=== PATIENT | female | born 2000 | race Caucasian/White ===

== ENCOUNTER → 2023-04-19 06:21 | Day surgery (SDC) | payer BC, SELFPAY | LOC: GI 06:21 | PROVIDERS: ATTENDING PHYSICIAN Internal Medicine | DX: Z09 Encounter for follow-up examination after completed treatment for conditions other than malignant neoplasm (principal); K51.00 Ulcerative (chronic) pancolitis without complications | CPT/HCPCS: 45380; 88305 ==

== ENCOUNTER → 2024-04-14 09:11 | Emergency (ER) | payer BC, MEDICARE, SELFPAY ==
[2024-04-14 09:20] VITALS: BP 114/77
--- NOTE | 2024-04-14 10:18 | ED.GENMED ---
History of Present Illness
General
Chief Complaint: Abdominal Symptoms
Source: patient and family (Mother)
Exam Limitations: none
Time Seen by Provider: 04/14/24 09:57
History of Present Illness
History of Present Illness:
23-year-old female, , 20 weeks presents with rectal bleeding. Known history of ulcerative colitis. Followed by our YOUTH CARE SPECIALIST/GI group. Has been on budesonide foam/steroid enema for 1 week. No improvement. Started oral budesonide
yesterday. Patient does not feel any worse today but with lack of improvement and significant concern for her baby she presents for evaluation. She is scheduled for a flex sig on . She denies fever chills nausea or vomiting. She has no
vaginal symptoms.
Past History
Past History
ED Past Medical History: Psychiatric and Other (Ulcerative colitis)
ED Past Surgical History: None
Social History
Tobacco: Non-smoker
Alcohol: None
Drug: None
Personal: Partner
Living: with family
Employment: Student
Review of Systems
Review of Systems
All Other Systems: Not applicable
Constitutional: Denies fever or chills
Phy Exam
Physical Exam
Physical Exam:
GENERAL: Alert and oriented in no apparent distress
EYE: Orbits normal.
NECK: Supple
CARDIAC: Regular rate and rhythm without any obvious murmurs.
LUNGS: Clear breath sounds,normal
ABDOMEN: Soft, mild epigastric tenderness. Mild periumbilical tenderness. No rebound or guarding no mass or hernia. Suprapubic fullness consistent with .
NEUROLOGICAL: Alert and oriented , grossly non-focal
SKIN: Warm and dry, no rash or lesion, no discoloration, skin intact.
MUSCULOSKELETAL: No edema,no deformity.Good color
PSYCH: Normal and appropriate interaction.
Course
Orders/Labs/Results
Orders:
Orders
04/14/24 10:14
IV Insert/Care/Rem.- Treatment PRN
Nursing to Place Non Medication Order As Directed
Physician Order: fhr
Above order entered?: Yes
04/14/24 10:45
Complete Blood Count/With Diff Urgent
Comprehensive Metabolic Panel Urgent
Lipase Urgent
04/14/24 10:59
US Limited Urgent
Comment:
Reason For Exam: abdominal cramps. 20 week
Abnormal Lab Results
04/14/24
10:45
MCH 32.5 H pg
(27.0-31.0)
Absolute Lymphs (auto) 0.9 L 10^3/uL
(1.2-3.4)
Immature Gran % 0.6 H %
(0-0.5)
Lymphocytes % 12.8 L %
(20.5-51.1)
Sodium 134 L mmol/L
(135-145)
Creatinine 0.5 L mg/dL
(0.6-1.0)
Total Protein 6.2 L g/dl
(6.3-8.2)
04/14/24 10:45
04/14/24 10:45
Vital Signs
Initial and Last Documented VS:
Initial Vital Signs
Temp Pulse Resp BP Pulse Ox
99.3 F 114 18 114/77 100
04/14/24 09:20 04/14/24 09:20 04/14/24 09:20 04/14/24 09:20 04/14/24 09:20
Last Documented Vital Signs
Temp Pulse Resp BP Pulse Ox
99.3 F 114 18 114/77 100
04/14/24 09:20 04/14/24 09:20 04/14/24 09:20 04/14/24 09:20 04/14/24 09:20
MDM/Problems Addressed
Differential Diagnosis Includes:
Patient presenting with flare of UC. Clinically stable and nontoxic. Nonsurgical abdomen. Highly doubt any acute issue related to the fetus. We will check hearts. Check labs. Discussed with GI and YOUTH CARE SPECIALIST
*Radiology
Radiology exam reviewed: radiology read reviewed (IUP 20 weeks. No abnormalities)
*Pulse Oximetry
Patient hypoxic: no
*Critical Care Note
Total Time (30-74mins, 75-104mins- exclusive of procedures): Not Applicable
Data Reviewed
Review of Other/Old Records Reveals: Labs, Records and Operative Reports (Negative colonoscopy 1 year ago)
Update Note
Update Note:
Discussed with MULTICULTURAL SERVICES LIBRARIAN and GI. Start prednisone 40 mg daily. They will see later in the week. Medically stable here.
ED Attending Note
-
Portions of this chart may have been created with voice recognition software.� Occasional wrong word or��sound alike� substitutions may have occurred due to the inherent limitations of voice recognition software.
Discharge Plan
Departure
Patient Disposition: Home (Routine Discharge)
Date of Disposition: 04/14/24
Time of Disposition: 12:10
Patient with high blood pressure during this ER visit?: No
Discharge Problem:
Ulcerative colitis flare/rectal bleeding, 20-week
Instructions: Ulcerative colitis in adults, Bloody Stools, Adult ED
Prescriptions:
New
prednisone 20 mg tablet
40 mg PO DAILY 7 Days Qty: 14 0RF
No Action
ascorbic acid (vitamin C) [Vitamin C] 500 mg Tablet
500 mg PO DAILY
sertraline 25 mg Tablet
25 mg PO DAILY
mesalamine [Lialda] 1.2 gram Tablet,Delayed Release (Dr/Ec)
1.2 g PO DAILY
Rx Instructions:
4 tablets daily
cholecalciferol (vitamin D3) [Vitamin D3] 50 mcg (2,000 unit) Capsule
50 mcg PO DAILY
Referrals:
Geoffrey Joshi MD [Family Provider] - Follow up in 2-3 days
Activity Restrictions/Additional Instructions:
Start the oral prednisone tomorrow I gave you 1 weeks worth and this prescription was sent to your pharmacy
After 1 week there will be a taper that your associate financial planner will manage
Follow-up closely this week with your senior report developer and gastroenterology
Return sooner with any concerns including increased bleeding increased abdominal pain, vaginal bleeding etc.
Interventions
Interventions:
*ED COVID-19 Vaccine History Last Done: 04/14/24 09:20
Discharge Date and Time
Print Language: KINYARWANDA
[2024-04-14 10:58] LABS: % Basophils 0.6 % (0-2); % Immature Granulocytes 0.6 % (0-0.5); % Lymphocytes 12.8 % (20.5-51.1); Absolute Eosinophils 0.3 10^3/uL (0-0.7); Absolute Lymphocytes 0.9 10^3/uL (1.2-3.4); Absolute Monocytes 0.5 10^3/uL (0.1-0.6); Absolute Neutrophils 5.3 10^3/uL (1.4-6.5); Hematocrit 40.7 % (37.0-47.0); Hemoglobin 13.8 g/dL (12.0-16.0); Mean Corp Hgb Conc. 33.9 g/dL (33.0-37.0); Mean Corpuscular Hgb 32.5 pg (27.0-31.0); Mean Platelet Volume 8.4 fL (7.4-10.4); Nucleated Red Blood Cells % 0 %; Platelet Count 209 10^3/uL (130-400); Red Blood Cell Count 4.24 10^6/uL (4.20-5.40); Red Cell Dist. Width 14.2 % (11.5-14.5); White Blood Cell Count 7.1 10^3/uL (4.8-10.8)
[2024-04-14 11:10] LABS: ALT (SGPT) < 10 U/L (0-35); AST (SGOT) 18 U/L (14-36); Albumin 3.5 g/dl (3.5-5.0); Alkaline Phosphatase 53 U/L (38-126); Blood Urea Nitrogen 7 mg/dl (7-17); Carbon Dioxide 27 mmol/L (22-30); Chloride 102 mmol/L (98-107); Glucose 85 mg/dl (70-99); Lipase 35 U/L (23-300); Potassium 3.7 mmol/L (3.5-5.1); Sodium 134 mmol/L (135-145); Total Bilirubin 0.5 mg/dl (0.2-1.3); Total Protein 6.2 g/dl (6.3-8.2); eGFR > 60.00
== END | disposition home or self-care (01) ==
LOC: EMR 09:11
PROVIDERS: EMERGENCY PHYSICIAN Emergency Medicine; FAMILY PHYSICIAN Family Medicine
DX: O99.612 Diseases of the digestive system complicating pregnancy, second trimester (principal); K51.911 Ulcerative colitis, unspecified with rectal bleeding; Z3A.20 20 weeks gestation of pregnancy
CPT/HCPCS: 99284; 76815; 80053; 83690; 85025

== ENCOUNTER 2024-04-17 06:48 | Day surgery (SDC) | payer BC, SELFPAY ==
[2024-04-17 13:55] VITALS: BMI 19.1
[2024-04-17 13:56] VITALS: BMI 19.1
[2024-04-17 13:57] VITALS: BP 120/78
[2024-04-17 15:30] VITALS: BP 105/65
[2024-04-17 15:37] VITALS: BP 107/76
--- NOTE | 2024-04-17 15:42 | PTCARENOTE ---
FHT's 160 via doppler
[2024-04-17 15:45] VITALS: BP 107/76
[2024-04-17 15:54] VITALS: BP 104/76
[2024-04-17 16:00] VITALS: BP 104/76
== END 2024-04-17 16:00 | disposition home or self-care (01) ==
LOC: SDS 06:48
PROVIDERS: ATTENDING PHYSICIAN Internal Medicine
DX: K92.1 Melena (principal); K51.918 Ulcerative colitis, unspecified with other complication
CPT/HCPCS: 45331; 88305; 88342

== ENCOUNTER 2024-04-20 12:29 | Emergency (ER) | payer BC, MEDICARE, SELFPAY ==
[2024-04-20 12:31] VITALS: BP 114/81
--- NOTE | 2024-04-20 13:06 | ED.GENMED ---
History of Present Illness
General
Chief Complaint: Abdominal Symptoms
Source: patient
Exam Limitations: none
Time Seen by Provider: 04/20/24 13:04
Nursing documentation reviewed up to this point in time: agreed with
History of Present Illness
History of Present Illness:
23-year-old female who is 21 weeks today which has been bothering her for the past 4 weeks with cramping, bloating, mucousy bloody stools, she had sigmoidoscopy 5 days ago showing severe ulcerative colitis she followed up with Dr. Smith
yesterday to discuss starting Remicade. In preparation for that she had outpatient labs and she does not have the results of the liver functions and TB test which she states were needed prior to starting Remicade.
She states if the labs are ok, Dr. Fernando said she would start her on Remicade.
She states she is here because 'I'm just over it.' And she wants to start the Remicade
She denies vaginal discharge or bleeding. She has felt movement daily
Denies fever/chills
She has been on prednisone 40 mg for the past 5 days and was told to continue she starts the Remicade then she will be tapered off the steroid.
She was on mesalamine 4.8 g daily and that was discontinued yesterday by Dr. Fonseca
She has appointment to speak to a computer information systems instructor in 5 days
Past History
Past History
ED Past Medical History: Psychiatric and Other (Ulcerative colitis)
ED Past Surgical History: None
Social History
Tobacco: Non-smoker
Alcohol: None
Drug: None
Personal: Partner
Living: with family
Employment: Student
Review of Systems
Review of Systems
Allergies reviewed?: Yes
All Other Systems: ROS reviewed and negative except as documented in HPI and ROS
Constitutional: Denies fever or chills
Respiratory: Denies trouble breathing
Cardiac: Denies chest pain
ABD/GI: Reports abdominal pain (bloating, cramping ), diarrhea and bloody stools (mucus bloody stools); Denies nausea or vomiting
: Denies dysuria, frequency, difficulty voiding, bleeding or discharge
Musculoskeletal: Reports no symptoms
Skin: Reports no symptoms
Neurological: Reports no symptoms
Phy Exam
Physical Exam
Physical Exam:
GENERAL: No acute distress. A&Ox3.
CONSTITUTIONAL: Afebrile.
EYES: clear, conjunctivae normal
ENMT: moist mucus membranes
RESPIRATORY: Regular respirations, nonlabored, lungs clear.
CARDIOVASCULAR: Regular rate and rhythm, no murmurs, no rubs.
GI: Soft, 6 month abdomen, normal BS
MUSCULOSKELETAL: Moves with ease. Well perfused.
SKIN: Warm, dry, pink
PSYCH: Normal mood and affect. Well kept, interactive and appropriate
NEUROLOGIC: Awake, alert and oriented. No focal neurological deficits
Course
Orders/Labs/Results
Orders:
Orders
04/20/24 13:15
Heart Tones ONCE
04/20/24 13:37
Complete Blood Count/With Diff Urgent
Comprehensive Metabolic Panel Urgent
Manual Differential Urgent
Abnormal Lab Results
04/20/24
13:37
RBC 3.73 L 10^6/uL
(4.20-5.40)
Hct 35.7 L %
(37.0-47.0)
MCH 32.7 H pg
(27.0-31.0)
Band Neutrophils 26 H %
(0-3)
Lymphocytes (Manual) 4 L %
(20-51)
Sodium 134 L mmol/L
(135-145)
Potassium 3.2 L mmol/L
(3.5-5.1)
Creatinine 0.4 L mg/dL
(0.6-1.0)
Glucose 111 H mg/dl
(70-99)
03/01/25 13:37
04/20/24 13:37
Vital Signs
Initial and Last Documented VS:
Initial Vital Signs
Temp Pulse Resp BP Pulse Ox
98.6 F 98 16 114/81 100
04/20/24 12:31 04/20/24 12:31 04/20/24 12:31 04/20/24 12:31 04/20/24 12:31
Last Documented Vital Signs
Temp Pulse Resp BP Pulse Ox
98.6 F 89 20 114/81 99
04/20/24 12:31 04/20/24 15:37 04/20/24 15:37 04/20/24 12:31 04/20/24 15:37
MDM/Problems Addressed
Differential Diagnosis Includes:
colitis, diverticulitis
MDM/Problems Addressed:
23-year-old female who is 21 weeks today which has been bothering her for the past 4 weeks with cramping, bloating, mucousy bloody stools, she had sigmoidoscopy 5 days ago showing severe ulcerative colitis she followed up with Dr. Smith
yesterday to discuss starting Remicade. In preparation for that she had outpatient labs and she does not have the results of the liver functions and TB test which she states were needed prior to starting Remicade.
She states if the labs are ok, Dr. Fernando said she would start her on Remicade.
She states she is here because 'I'm just over it.' And she wants to start the Remicade
She denies vaginal discharge or bleeding. She has felt movement daily
Denies fever/chills
Afebrile, NAD
Patient here 05/12/2024 for rectal bleeding on had colonoscopy on 04/17/2024 showing severe ulcerative colitis and started on Prednisone
She has been on prednisone 40 mg for the past 5 days and was told to continue she starts the Remicade then she will be tapered off the steroid.
She was on mesalamine 4.8 g daily and that was discontinued yesterday by Dr. Fernando
She has appointment to speak to a computer information systems instructor in 5 days
2:30 PM:
CBC unremarkable
CMP unremarkable
Consulted OB Dr. Howell and GI Dr. Simon for advice
Dr. Howell says Remicade is safe in
Dr. Simon confirms Need hep B serology / TB qusntiferon prior to starting infliximab
These are pending as out pt labs
Pt is comfortable going home, understands need those lab results that won't be available until Monday
Afebrile, in no acute distress, normal white blood cell count, no indication for admission at this point., reasonable to DC and follow up in 2 days (Monday)
Return instructions reviewed
*Critical Care Note
Total Time (30-74mins, 75-104mins- exclusive of procedures): Not Applicable
ED Attending Note
-
Portions of this chart may have been created with voice recognition software.� Occasional wrong word or��sound alike� substitutions may have occurred due to the inherent limitations of voice recognition software.
Discharge Plan
Departure
Patient Disposition: Home (Routine Discharge)
Date of Disposition: 04/20/24
Time of Disposition: 15:20
Patient with high blood pressure during this ER visit?: No
Condition: Good
Discharge Problem:
Diverticulitis
Instructions: Diverticulitis - Discharge instructions
Prescriptions:
No Action
sertraline 25 mg Tablet
25 mg PO DAILY
mesalamine [Lialda] 1.2 gram Tablet,Delayed Release (Dr/Ec)
1.2 g PO DAILY
Rx Instructions:
4 tablets daily
prednisone 20 mg tablet
40 mg PO DAILY 7 Days Qty: 14 0RF
acetaminophen [Tylenol Ex Str Arthritis Pain] 500 mg Tablet
500 mg PO Q6H PRN (Reason: pain)
1 tab PO DAILY
Referrals:
Geoffrey Joshi MD [Family Provider] -
Floresita Fernando MD [Active] - Follow up in 2-3 days
Activity Restrictions/Additional Instructions:
As we discussed, call Dr. Fernando Monday and request your Remicade
I consulted ARM[employer] MECH[employer] Dr. Howell that says Remicade is safe in . I also communicated with GI Dr. Simon so they are both aware of your being here today.
Continue your current medications.
Your lab work shows nothing worrisome. Unchanged from previous
Return here over the weekend for fever, worsening abdominal pain or bloody stools or feeling sicker in any way.
Interventions
Interventions:
*Risk Screen - Suicide Last Done: 04/20/24 12:33
*Neglect/Abuse Screening Last Done: 04/20/24 12:33
ED- Fall Risk Assessment Last Done: 04/20/24 14:05
*ED COVID-19 Vaccine History Last Done: 04/20/24 14:05
*Nursing Disposition Last Done: 04/20/24 15:37
SC-Vvvbzz-Bhzbdnwecd Assessment Last Done: 04/20/24 14:05
Discharge Date and Time
Discharge Date/Time: 04/20/24 15:38
Print Language: DANISH
[2024-04-20 14:18] LABS: ALT (SGPT) 11 U/L (0-35); AST (SGOT) 14 U/L (14-36); Albumin 3.8 g/dl (3.5-5.0); Alkaline Phosphatase 52 U/L (38-126); Blood Urea Nitrogen 8 mg/dl (7-17); Calcium 9.3 mg/dl (8.4-10.2); Carbon Dioxide 22 mmol/L (22-30); Chloride 103 mmol/L (98-107); Glucose 111 mg/dl (70-99); Potassium 3.2 mmol/L (3.5-5.1); Sodium 134 mmol/L (135-145); Total Bilirubin 0.5 mg/dl (0.2-1.3); Total Protein 6.3 g/dl (6.3-8.2); eGFR > 60.00
[2024-04-20 14:20] LABS: Hematocrit 35.7 % (37.0-47.0); Hemoglobin 12.2 g/dL (12.0-16.0); Mean Corp Hgb Conc. 34.2 g/dL (33.0-37.0); Mean Corpuscular Hgb 32.7 pg (27.0-31.0); Mean Corpuscular Volume 95.7 fL (81.0-99.0); Mean Platelet Volume 8.7 fL (7.4-10.4); Platelet Count 242 10^3/uL (130-400); Red Blood Cell Count 3.73 10^6/uL (4.20-5.40); Red Cell Dist. Width 13.9 % (11.5-14.5); White Blood Cell Count 6.9 10^3/uL (4.8-10.8)
[2024-04-20 14:45] LABS: Band Neutrophils 26 % (0-3); Eosinophils 1 % (0-6); Lymphocytes 4 % (20-51); Monocytes 6 % (2-9); Myelocytes 1 % (-); Segmented Neutrophils 62 % (42-75)
[2024-04-20 14:46] LABS: Normal RBC Morphology Yes; Platelets Checked YES; Total Cells Counted 100
== END 2024-04-20 15:38 | disposition home or self-care (01) ==
LOC: EMR 12:29
PROVIDERS: Registered Nurse; EMERGENCY PHYSICIAN Emergency Medicine; FAMILY PHYSICIAN Family Medicine
DX: O99.612 Diseases of the digestive system complicating pregnancy, second trimester (principal); K57.92 Diverticulitis of intestine, part unspecified, without perforation or abscess without bleeding; K51.90 Ulcerative colitis, unspecified, without complications; Z79.899 Other long term (current) drug therapy; Z3A.21 21 weeks gestation of pregnancy
CPT/HCPCS: 99283; 80053; 85025

== ENCOUNTER → 2024-04-25 08:59 | Outpatient (REF) | payer BC, SELFPAY | LOC: PNTC 08:59 | PROVIDERS: ATTENDING PHYSICIAN Obstetrics & Gynecology; FAMILY PHYSICIAN Family Medicine | DX: O35.5XX0 Maternal care for (suspected) damage to fetus by drugs, not applicable or unspecified (principal); K51.00 Ulcerative (chronic) pancolitis without complications | CPT/HCPCS: 76815 ==

== ENCOUNTER 2024-05-14 15:05 | Observation (INO) | payer BC, SELFPAY ==
[2024-05-14 15:09] VITALS: BP 125/73; BMI 18.3
[2024-05-14] MEDS: CELESTONE SOLUSPAN 2 MG IM (16:47)
[2024-05-14 16:57] LABS: Hemoglobin 9.7 g/dL (12.0-16.0); Mean Corp Hgb Conc. 33.4 g/dL (33.0-37.0); Mean Corpuscular Hgb 31.8 pg (27.0-31.0); Mean Corpuscular Volume 95.1 fL (81.0-99.0); Mean Platelet Volume 7.8 fL (7.4-10.4); Platelet Count 275 10^3/uL (130-400); Red Blood Cell Count 3.05 10^6/uL (4.20-5.40); Red Cell Dist. Width 14.6 % (11.5-14.5); White Blood Cell Count 6.3 10^3/uL (4.8-10.8)
[2024-05-14] MEDS: INDOCIN 50 MG PO (17:19)
[2024-05-14 17:38] LABS: Urine Albumin Negative (Neg - Trace); Urine Bilirubin Negative (Negative); Urine Character Clear (Clear); Urine Color Yellow; Urine Glucose Negative (Negative); Urine Ketone Negative (Negative); Urine Leukocyte Negative (Negative); Urine Nitrite Negative (Negative); Urine Occult Blood Negative (Negative); Urine Specific Gravity 1.015 (<1.030); Urine Urobilinogen Negative (Neg - 1+)
[2024-05-14] MEDS: FEOSOL 325 MG PO (19:55)
[2024-05-14] MEDS: INDOCIN 25 MG PO (23:03)
[2024-05-15] MEDS: INDOCIN 25 MG PO ×3 (05:00→17:26)
[2024-05-15] MEDS: FEOSOL 325 MG PO (07:55)
[2024-05-15] MEDS: ZOLOFT 25 MG PO (07:55)
[2024-05-15] MEDS: DELTASONE 40 MG PO (07:55)
[2024-05-15] MEDS: CELESTONE SOLUSPAN 2 MG IM (16:39)
== END 2024-05-15 17:44 | disposition home or self-care (01) ==
LOC: LDRP 15:05
PROVIDERS: ADMITTING PHYSICIAN Obstetrics & Gynecology
DX: O26.872 Cervical shortening, second trimester (principal); Z3A.24 24 weeks gestation of pregnancy; K51.90 Ulcerative colitis, unspecified, without complications; Z79.52 Long term (current) use of systemic steroids; Z79.69 Long term (current) use of other immunomodulators and immunosuppressants; O99.342 Other mental disorders complicating pregnancy, second trimester; F41.9 Anxiety disorder, unspecified; F32.A Depression, unspecified; Z91.013 Allergy to seafood
CPT/HCPCS: 76816; 76817; 81003; 85027; 86850; 86900; 86901; 87491; 87591; G0378

== ENCOUNTER → 2024-06-11 14:13 | Outpatient (REF) | payer BC, MEDICARE, SELFPAY | LOC: PNTC 14:13 | PROVIDERS: ATTENDING PHYSICIAN Obstetrics & Gynecology | DX: K50.00 Crohn's disease of small intestine without complications (principal) | CPT/HCPCS: 76816 ==

== ENCOUNTER 2024-06-14 02:32 | Observation (INO) | payer BC, MEDICARE, SELFPAY ==
[2024-06-14 02:41] VITALS: BMI 19.6
[2024-06-14 03:01] VITALS: BP 119/78
[2024-06-14 03:39] LABS: % Basophils 0.2 % (0-2); % Eosinophils 0.1 % (0-6); % Immature Granulocytes 1.5 % (0-0.5); % Lymphocytes 8.8 % (20.5-51.1); % Monocytes 5.4 % (1.7-9.3); Absolute Immature Granulocytes 0.2 10^3/uL (0-0.05); Absolute Lymphocytes 1.3 10^3/uL (1.2-3.4); Absolute Monocytes 0.8 10^3/uL (0.1-0.6); Absolute Neutrophils 12.2 10^3/uL (1.4-6.5); Hematocrit 30.1 % (37.0-47.0); Hemoglobin 10.7 g/dL (12.0-16.0); Mean Corp Hgb Conc. 35.5 g/dL (33.0-37.0); Mean Corpuscular Hgb 33.8 pg (27.0-31.0); Mean Platelet Volume 8.7 fL (7.4-10.4); Nucleated Red Blood Cells % 0 %; Platelet Count 198 10^3/uL (130-400); Red Blood Cell Count 3.17 10^6/uL (4.20-5.40); Red Cell Dist. Width 14.7 % (11.5-14.5); White Blood Cell Count 14.6 10^3/uL (4.8-10.8)
[2024-06-14 03:47] LABS: Urine Albumin 2+ (Neg - Trace); Urine Bilirubin Negative (Negative); Urine Character Slightly Cloudy (Clear); Urine Color Yellow; Urine Glucose Negative (Negative); Urine Ketone Negative (Negative); Urine Leukocyte Negative (Negative); Urine Nitrite Negative (Negative); Urine Occult Blood 4+ (Negative); Urine Specific Gravity 1.015 (<1.030); Urine Urobilinogen Negative (Neg - 1+); Urine pH 6.5 (5.0-9.0)
[2024-06-14 03:55] LABS: Urine Bacteria Few (Negative); Urine Red Blood Cell >100 /HPF (0-2)
[2024-06-14 04:04] LABS: ALT (SGPT) 10 U/L (0-35); AST (SGOT) 15 U/L (14-36); Albumin 3.7 g/dl (3.5-5.0); Alkaline Phosphatase 51 U/L (38-126); Blood Urea Nitrogen 9 mg/dl (7-17); Carbon Dioxide 19 mmol/L (22-30); Chloride 106 mmol/L (98-107); Estimated Creatinine Clearance 110 ml/min; Glucose 91 mg/dl (70-99); Potassium 3.5 mmol/L (3.5-5.1); Sodium 135 mmol/L (135-145); Total Bilirubin 0.4 mg/dl (0.2-1.3); Total Protein 6.1 g/dl (6.3-8.2); eGFR > 60.00
[2024-06-14] MEDS: TYLENOL 650 MG PO (05:17)
[2024-06-14] MEDS: LR 1000 IV ×2 (05:27→09:46)
[2024-06-14] MEDS: MORPHINE SULFATE 2 MG IV ×2 (07:22→08:12)
[2024-06-14] MEDS: ZOFRAN 4 MG IV (08:26)
[2024-06-14] MEDS: DELTASONE 20 MG PO (10:50)
[2024-06-14] MEDS: ZOLOFT 25 MG PO (10:50)
[2024-06-14] MEDS: MORPHINE SULFATE 4 MG IV (12:09)
--- NOTE | 2024-06-14 13:01 | CONS.URO ---
Consultation
-
Date/Time Consultation Requested: 06/14/24
Date/Time Consultation Performed: 06/14/24
Requesting Provider: Radha
Performing Provider: Prerna
Reason for Consultation: left hydronephrosis + ureteral stone
Medical History
History of Present Illness
23F who is currently 28w6d presenting w/ left flank pain.
DAVID => mild left hydronephrosis, 4 mm stone in proximal left ureter.
UA not indicative of UTI.
Denies h/o Janice or kidney stones.
Denies F/C.
Past Medical History
Past Medical History: Other (Ulcerative colitis)
Past Surgical History: None
Social History
Tobacco: Non-smoker
Alcohol: None
Drug: None
Personal: Single
Family History
Family History: Reviewed & Not Pertinent
Allergies/Home Medications
Allergies
Allergy/AdvReac Type Severity Reaction Status Date / Time
shellfish derived Allergy Rash Verified 06/14/24 02:43
Home Medications
�Medication �Instructions �Recorded �Confirmed �Type
sertraline 25 mg tablet 25 mg PO DAILY 08/03/22 06/14/24 History
1 tab PO DAILY 04/17/24 06/14/24 History
infliximab 100 mg intravenous 10 mg IV MONTHLY 05/14/24 06/14/24 History
solution (Remicade)
prednisone 20 mg tablet 20 mg PO DAILY 06/14/24 06/14/24 History
Review of Systems
-
History Source: Patient
A 12 point Review of Systems was completed except as noted: Yes
Physical Exam
Vital Signs
Vital Signs
Temp Pulse Resp BP Pulse Ox
98.7 F 101 18 119/78 99
06/14/24 03:01 06/14/24 03:01 06/14/24 03:01 06/14/24 03:01 06/14/24 03:01
Lab / Testing Results
Laboratory Results
06/14/24 03:20
06/14/24 03:20
Physical Exam
General: Well Developed, Well Nourished and No Apparent Distress
HEENT: Normocephalic and Anicteric
Cardiac: Regular Rhythm
Breast: Deferred by me
GI: Soft, Non Tender and Non Distended (gravid abdomen)
Genito-urinary: Clear Urine
Musculoskeletal: No Edema
Skin: Warm and Dry
Neuro: AO x 3, No Motor Deficits and Nonfocal/Grossly Intact
Hematologic/Lymphatic: No Lymphadenopathy
Psych: Calm and Intact Judgement
Assessment / Plan
-
Mild left hydronephrosis
Obstructing proximal left ureteral stone
High risk (cervical shortening)
Afebrile, non-toxic
WBC WNL
Cr WNL
UA >100 RBCs c/w ureteral stone, not indicative of cUTI
Patient is a higher risk given h/o cervical shortening - d/w Dr. Garcia.
Offered elective surgical intervention w/ left ULS vs. left ureteral stent placement only (which would require staged intervention in future).
Patient elects to proceed w/ ureteroscopy/laser lithotripsy/stone extraction/stent placement.
- Maintain NPO (clears OK until 230pm per Anesthesia)
- To OR this afternoon for left ULS
- IV Ancef 2g rail transportation operator to OR
- Surgical consent + laterality marking in preop holding
D/w Dr. Garcia.
Data Reviewed
-
Total Time Spent with Patient (in minutes): 45
Ultrasound: Image personally visualized and interpreted, Report Reviewed by Me, Discussed with Physician and Discussed with Patient
Lab Data: Labs Reviewed, Discussed with Physician and Discussed with Patient
Old Records: Reviewed
--- NOTE | 2024-06-14 13:46 | CM ---
CM reviewed chart, mother seen bedside with mother and boyfriend. Mother confirms she lives in the home with her mother and significant other. with first child. Mother for OR today. Mother confirms PCP Leanne Ndiaye through [facility]
appt in July. OBS form verbally reviewed, provided with copy, placed in chart. CM will continue to follow for all discharge planning needs.
Plan; home with family when medically stable.
--- NOTE | 2024-06-14 16:58 | W.IMMPOSTOP ---
Surgical Immed Post Op Note
-
Primary Surgeon: Prerna
Pre-op Diagnosis: Obstructing proximal left ureteral stone w/ mild left hydronephrosis
Post-op Diagnosis: Same, non-obstructing left lower pole stone
Procedure Performed: cystoscopy, left ureteroscopy/laser lithotripsy/stone extraction/stent placement
Anesthesia Type: GETA
Specimen / Cultures: Stones for analysis/None
Estimated Blood Loss: Negligible
Drains: 4.7Fr x 22 cm JJ left ureteral stent
Complications: None
Operative Findings:
Final KUB demonstrating left ureteral stent in appropriate position. Final cysto confirming distal curl emanating from left UO appropriately.
Gravid uterus w/ bladder compression and deviation as expected.
Minimal intraop fluoroscopy utilized (3rd trimester patient).
Mother (Onesimo) updated postop on findings and plan of care.
[2024-06-14 17:06] VITALS: BP 118/80; BP 119/78
[2024-06-14 17:08] VITALS: BP 118/80
[2024-06-14 17:15] VITALS: BP 115/72
[2024-06-14 17:21] VITALS: BP 115/72
[2024-06-14 17:30] VITALS: BP 116/77
[2024-06-15] MEDS: ZOLOFT 25 MG PO (08:03)
[2024-06-15] MEDS: DELTASONE 20 MG PO (08:03)
--- NOTE | 2024-06-15 09:15 | W.PN.URO.CBU ---
Today's Communication / Plan
-
OK to d/c home from urologic standpoint
Tylenol prn bladder discomfort
F/U in 10-14 days for cysto + stent removal - office contact info provided
D/w Dr. Garcia.
D/w patient and mother .
Assessment / Plan
-
Obstructing proximal left ureteral stone
Mild left hydronephrosis
High risk (29 weeks)
06/14: s/p left ULS
Diagnosis
-
Date of Service: June 15, 2024
-
Patient Diagnosis:
Obstructing proximal left ureteral stone
Mild left hydronephrosis
High risk (29 weeks)
Post Op Day:
06/14: s/p left ULS
Subjective
-
'Feels so much better.'
Tolerating diet.
Minimal hematuria and stent bother.
Objective
-
Vital Signs
Temp Pulse Resp BP Pulse Ox
98.4 F 102 14 116/77 95
06/14/24 17:45 06/14/24 17:45 06/14/24 17:45 06/14/24 17:30 06/14/24 17:45
Laboratory Results
06/14/24 03:20
06/14/24 03:20
Physical Exam
-
General - well developed, well nourished, no acute distress
Abdomen - soft, non-tender, gravid abdomen
Skin - warm & dry with no rash
Extremities - no clubbing, no cyanosis, no edema
--- NOTE | 2024-06-15 09:18 | W.DS.TRANS ---
DC Summary - Computer Analyst Supervisor
-
Discharge Instructions:
Discharge Diagnosis/Procedures 29 wks; left kidney stone; cystoscopy,
left ureteroscopy, lithotripsy, removal of
stone and stent placement
Diet Regular
Activity No restrictions
Driving Restrictions As prior to admission
Bathing Restrictions OK to Shower
Instructions:
Stand-Alone Forms: LDRP Observation DC Instruct
Changes to Home Medications: No
Discharge Medications:
DC Medications w/original date entered in [facility]
sertraline 25 mg tablet 25 mg PO DAILY 08/03/22
1 tab PO DAILY 04/17/24
infliximab 100 mg intravenous solution (Remicade) 10 mg IV MONTHLY 05/14/24
prednisone 20 mg tablet 20 mg PO DAILY 06/14/24
acetaminophen 325 mg tablet 650 mg (2 x 325 mg) PO Q4HPRN PRN pain #0 tabs 06/15/24
Home Medication Changes
Pending Results: No
== END 2024-06-15 09:35 | disposition home or self-care (01) ==
LOC: LDRP 02:32
PROVIDERS: ADMITTING PHYSICIAN Obstetrics & Gynecology; CONSULT PHYSICIAN Surgery
PROC: 0TC78ZZ Extirpation of Matter from Left Ureter, Via Natural or Artificial Opening Endoscopic (ICD-10-PCS; 2024-06-14)
PROC: 0T778DZ Dilation of Left Ureter with Intraluminal Device, Via Natural or Artificial Opening Endoscopic (ICD-10-PCS; 2024-06-14)
DX: O99.613 Diseases of the digestive system complicating pregnancy, third trimester (principal); O09.93 Supervision of high risk pregnancy, unspecified, third trimester; N13.2 Hydronephrosis with renal and ureteral calculous obstruction; Z3A.29 29 weeks gestation of pregnancy
CPT/HCPCS: 74018; 76000; 76770; 80053; 81003; 81015; 82365; 85025; A4300; C1758; C1769; C1894; C2617; G0378

== ENCOUNTER → 2024-07-09 11:53 | Outpatient (REF) | payer BC, MEDICARE, SELFPAY | LOC: PNTC 11:53 | PROVIDERS: ATTENDING PHYSICIAN Obstetrics & Gynecology | DX: K51.90 Ulcerative colitis, unspecified, without complications (principal); O35.8XX0 Maternal care for other (suspected) fetal abnormality and damage, not applicable or unspecified; O36.5930 Maternal care for other known or suspected poor fetal growth, third trimester, not applicable or unspecified | CPT/HCPCS: 59025; 76816; 76820 ==

== ENCOUNTER → 2024-07-18 14:03 | Outpatient (REF) | payer BC, MEDICARE, SELFPAY | LOC: PNTC 14:03 | PROVIDERS: ATTENDING PHYSICIAN Obstetrics & Gynecology | DX: O36.5930 Maternal care for other known or suspected poor fetal growth, third trimester, not applicable or unspecified (principal); O35.5XX0 Maternal care for (suspected) damage to fetus by drugs, not applicable or unspecified; K52.9 Noninfective gastroenteritis and colitis, unspecified | CPT/HCPCS: 59025; 76815; 76820 ==

== ENCOUNTER → 2024-07-25 13:59 | Outpatient (REF) | payer BC, MEDICARE, SELFPAY | LOC: PNTC 13:59 | PROVIDERS: ATTENDING PHYSICIAN Obstetrics & Gynecology | DX: O36.5990 Maternal care for other known or suspected poor fetal growth, unspecified trimester, not applicable or unspecified (principal); O99.320 Drug use complicating pregnancy, unspecified trimester; O99.619 Diseases of the digestive system complicating pregnancy, unspecified trimester | CPT/HCPCS: 59025; 76815; 76820 ==

== ENCOUNTER → 2024-08-01 13:53 | Outpatient (REF) | payer BC, MEDICARE, SELFPAY | LOC: PNTC 13:53 | PROVIDERS: ATTENDING PHYSICIAN Obstetrics & Gynecology | DX: O99.320 Drug use complicating pregnancy, unspecified trimester (principal); O36.5990 Maternal care for other known or suspected poor fetal growth, unspecified trimester, not applicable or unspecified; K51.00 Ulcerative (chronic) pancolitis without complications | CPT/HCPCS: 59025; 76816; 76820 ==

== ENCOUNTER → 2024-08-08 07:54 | Outpatient (REF) | payer BC, MEDICARE, SELFPAY | LOC: PNTC 07:54 | PROVIDERS: ATTENDING PHYSICIAN Obstetrics & Gynecology | DX: Z36.4 Encounter for antenatal screening for fetal growth retardation (principal); O99.619 Diseases of the digestive system complicating pregnancy, unspecified trimester; O99.320 Drug use complicating pregnancy, unspecified trimester | CPT/HCPCS: 59025; 76815; 76820 ==

== ENCOUNTER → 2024-08-15 14:09 | Outpatient (REF) | payer BC, MEDICARE, SELFPAY | LOC: PNTC 14:09 | PROVIDERS: ATTENDING PHYSICIAN Obstetrics & Gynecology | DX: O36.5990 Maternal care for other known or suspected poor fetal growth, unspecified trimester, not applicable or unspecified (principal); K51.90 Ulcerative colitis, unspecified, without complications; O99.320 Drug use complicating pregnancy, unspecified trimester | CPT/HCPCS: 59025; 76816; 76820 ==

== ENCOUNTER 2024-08-18 09:10 | Inpatient (IN) | payer BC, MEDICARE, SELFPAY ==
[2024-08-18 09:28] VITALS: BP 123/88; BMI 21.1
[2024-08-18] MEDS: LR 1000 IV ×3 (10:41→23:30)
[2024-08-18] MEDS: PITOCIN 30 UNITS/NSS 500 ML IV (10:46)
[2024-08-18 10:53] LABS: Hematocrit 35.5 % (37.0-47.0); Hemoglobin 12.5 g/dL (12.0-16.0); Mean Corp Hgb Conc. 35.2 g/dL (33.0-37.0); Mean Corpuscular Volume 93.9 fL (81.0-99.0); Nucleated Red Blood Cells % 0 %; Platelet Count 191 10^3/uL (130-400); Red Cell Dist. Width 13.5 % (11.5-14.5)
[2024-08-18] MEDS: ZOLOFT PO (14:57)
[2024-08-18] MEDS: SUBLIMAZE 100 MCG EPIDURAL (15:30)
[2024-08-18] MEDS: FENTANYL/BUPIVACAINE 100 EPIDURAL (15:30)
[2024-08-18] MEDS: SOLU-CORTEF 100 MG IV (19:31)
[2024-08-19] MEDS: FENTANYL/BUPIVACAINE 100 EPIDURAL (00:22)
[2024-08-19] MEDS: PITOCIN 30 UNITS/NSS 500 ML IV (01:00)
[2024-08-19] MEDS: TRANEXAMIC ACID 100 IV (01:18)
[2024-08-19] MEDS: SOLU-CORTEF 100 MG IV ×3 (03:41→19:53)
[2024-08-19] MEDS: PRENATAL PLUS PO (08:23)
[2024-08-19] MEDS: ZOLOFT 25 MG PO (08:23)
[2024-08-19] MEDS: TYLENOL 650 MG PO (16:33)
[2024-08-20 06:09] LABS: Hematocrit 28.7 % (37.0-47.0); Hemoglobin 9.7 g/dL (12.0-16.0)
[2024-08-20] MEDS: DELTASONE 20 MG PO (08:06)
[2024-08-20] MEDS: PRENATAL PLUS PO (08:06)
[2024-08-20] MEDS: ZOLOFT 25 MG PO (08:06)
[2024-08-20] MEDS: TYLENOL 650 MG PO ×2 (09:50→20:04)
[2024-08-20 14:06] LABS: Syphilis/T. pallidum Ab Reflex Negative (Negative)
[2024-08-21] MEDS: TYLENOL 650 MG PO (05:39)
[2024-08-21] MEDS: SENOKOT-S 1 TABLET PO (08:50)
[2024-08-21] MEDS: ZOLOFT 25 MG PO (08:50)
[2024-08-21] MEDS: PRENATAL PLUS 1 TABLET PO (08:50)
[2024-08-21] MEDS: DELTASONE 20 MG PO (08:54)
== END 2024-08-21 13:28 | disposition home or self-care (01) | DRG 807 ==
LOC: LDRP 09:10
PROVIDERS: ADMITTING PHYSICIAN Obstetrics & Gynecology
PROC: 0HQ9XZZ Repair Perineum Skin, External Approach (ICD-10-PCS; 2024-08-19)
PROC: 10E0XZZ Delivery of Products of Conception, External Approach (ICD-10-PCS; 2024-08-19)
DX: O36.5930 Maternal care for other known or suspected poor fetal growth, third trimester, not applicable or unspecified (principal); Z37.0 Single live birth; O70.0 First degree perineal laceration during delivery; Z3A.38 38 weeks gestation of pregnancy
CPT/HCPCS: 88307; 85014; 85018; 85025; 86780; 86850; 86900; 86901

== ENCOUNTER → 2024-10-03 09:02 | Outpatient (REF) | payer BC, MEDICARE, SELFPAY | LOC: WDC 09:02 | PROVIDERS: ATTENDING PHYSICIAN Obstetrics & Gynecology | DX: N63.10 Unspecified lump in the right breast, unspecified quadrant (principal); N64.4 Mastodynia | CPT/HCPCS: 76642 ==

== ENCOUNTER → 2024-10-08 07:52 | Outpatient (REF) | payer BC, MEDICARE, SELFPAY ==
--- NOTE | 2024-10-08 14:48 | OID.BR.INTR ---
OID Breast Navigator - Initial
- -
Date of Contact: 10/08/24
Met with patient. Will follow up as needed per protocol.
== END ==
LOC: WDC 07:52
PROVIDERS: ATTENDING PHYSICIAN Obstetrics & Gynecology
DX: N63.11 Unspecified lump in the right breast, upper outer quadrant (principal)
CPT/HCPCS: 19083; 88305; 88342; A4648

== ENCOUNTER → 2024-10-14 14:00 | Outpatient (REF) | payer BC, MEDICARE, SELFPAY | LOC: CLAB 14:00 | PROVIDERS: ATTENDING PHYSICIAN Obstetrics & Gynecology | DX: N64.9 Disorder of breast, unspecified (principal) | CPT/HCPCS: 87070; 87147; 87186 ==

== ENCOUNTER → 2024-11-14 14:13 | Outpatient (REF) | payer BC, MEDICARE, SELFPAY | LOC: RAD 14:13 | DX: M54.2 Cervicalgia (principal) | CPT/HCPCS: 72050 ==

== ENCOUNTER → 2024-12-24 12:31 | Outpatient (REF) | payer BC, MEDICARE, SELFPAY | LOC: HWRAD 12:31 | PROVIDERS: ATTENDING PHYSICIAN Student in an Organized Health Care Education/Training Program; FAMILY PHYSICIAN Student in an Organized Health Care Education/Training Program | DX: M54.2 Cervicalgia (principal) | CPT/HCPCS: 76536 ==